=== PATIENT | male | born 1990 | race Caucasian/White ===

== ENCOUNTER 2017-01-08 15:35 | Emergency (ER) | payer SELFPAY ==
[~2017-01-08] VITALS: Ht 188 cm; Wt 121.7 kg
[~2017-01-08 15:35] MED LIST: BUPR-51 PO; IBUP-1546 PO; OMEP-122 PO; PRED50TA PO; SERT25TA PO; [UNRECOGNIZED DRUG - OTHER]
[2017-01-08 15:37] VITALS: Ht 188 cm; Wt 121.7 kg
--- OUTSIDE RECORDS SUMMARY | 2017-01-08 15:40 | XMS REPORT | Continuity of Care Document ---
Author Author [facility] Organization [facility] Address Unknown Phone Unavailable Care Team Providers Care Manager Customer Name Role Phone LISA LOPEZ DO Primary Care Physician [phone] Insurance Providers Guarantor Tiffani Arevalo Address [address] [place] [address] Email [email or web address] Payer Self Pay Subscriber's Name Tiffani Arevalo Relationship 18 Self Advance Directives Directive Response Recorded Date/Time Advanced Directives Type None 12/28/13 11:35pm Chief Complaint and Reason for Visit Chief Complaint Skin Rash/Abscess/Injury Reason for Visit [id number] Problems Active Problems Medical Problem Onset Date Status Dehydration Unknown Acute Diarrhea Unknown Acute Peripheral neuropathy Unknown Acute Trapezius muscle spasm Unknown Acute Past Problems Medical Problem Onset Date Depression with suicidal ideation Unknown Poison radha dermatitis Unknown Medications Current Home Medications Medication Dose Units Route Directions Days Qty Instructions Start Date Bupropion Hcl (Bupropion Xl) 150 Mg Tab.er.24h 12/26/16 Ibuprofen 400 Mg Tablet 1 Tab Oral Every 6 Hr Prn 20 Tablet Ivarest 12/26/16 Omeprazole 20 Mg Tablet.dr 20 Mg Oral Before Breakfast Take 1 tablet , by mouth, one time a day with breakfast. 12/26/16 Prednisone 50 Mg Tablet 50 Mg Oral Give With Breakfast 7 Days 7 Tablet Take 1 tablet, by mouth, once a day with breakfast. Supervising physician Dr. Deejay Cotton Profile Grinder Technician [facility] [address] [phone] 12/26/16 Sertraline Hcl (Zoloft) 25 Mg Tablet Unknown Dose Oral Daily Past Home Medications Medication Directions Ordered Status Baclofen 10 Mg Tablet, 10 Mg Oral Three Times A Day 07/08/15 Discontinued Ibuprofen 800 Mg Tablet, 1 Tab Oral Three Times A Day as needed for Pain Discontinued No Routine Meds , 07/08/15 Discontinued Social History Social History Problem Response Recorded Date/Time Onset Date Status Hx Alcohol Use N CLEAN SINCE 08-19-2015 08/19/2016 3:18am Not Applicable Not Applicable Tobacco Usage none 12/28/2013 11:33pm Not Applicable Not Applicable Query Response Start Date Stop Date Smoking Status Current every day smoker Hospital Discharge Instructions No hospital discharge instructions. Plan of Care Discharge Date 12/26/16 4:18pm Disposition 01 DISCHARGED HOME, SELF-CARE Condition at Discharge Stable Instructions/Education Provided Contact Dermatitis (DC) Poison Radha (ED) Prescriptions See Medication Section Referrals LISA LOPEZ DO Address: [facility] [place] [phone] JIA MONTEIRO MD Address: [address] [place] [address] [place] [phone] Additional Instructions/Education You have had an injection of dexamethasone in the clinic today. Starting tomorrow morning begin the prednisone 50 mg daily as directed. If your developing worsening symptoms with spreading rash you need to follow with primary care clinic. Keep the skin areas clean and dry, do not apply any antibiotic ointments or moistening agents. Functional Status No functional status results. Allergies, Adverse Reactions, Alerts Allergen Type Severity Reaction Status Last Updated Penicillin Allergy Unknown Active 12/26/16 Immunizations Query Response on File Recorded Date/Time Hx Tetanus, Diptheria, Pertussis No 12/28/13 11:35pm Hx Tetanus, Diptheria, Pertussis No 12/28/13 11:35pm Influenza Vaccine Hx NO 12/26/16 3:40pm Vital Signs Acute Vital Signs Vital Response Date/Time Temperature (Fahrenheit) 97.5 deg F (96.8 - 99.1) 12/26/2016 3:34pm Temperature (Calculated Celsius) 36.66853 degrees C (36.0 - 37.3) 12/26/2016 3:34pm Pulse Rate (adult) 96 bpm (60 - 100) 12/26/2016 3:34pm Respiratory Rate 16 breaths/min (10 - 20) 12/26/2016 3:34pm O2 Sat by Pulse Oximetry 97 % (90 - 100) 12/26/2016 3:34pm Blood Pressure 133/90 mm Hg 12/26/2016 3:34pm Height (Inches) 72.50 inches 12/26/2016 3:34pm Weight (Kilograms) 119.700 kg 12/26/2016 3:34pm Body Mass Index (BMI) 35.0 12/26/2016 3:34pm Results No known relevant diagnostic tests, laboratory data and/or discharge summary. Procedures No known history of procedures. Encounters Encounter Location Arrival/Admit Date Discharge/Depart Date Attending Provider Departed Emergency Room [facility] 12/26/16 3:26pm 12/26/16 4: 18pm MADELYN BARNARD APRN Recent Diagnosis
--- OUTSIDE RECORDS SUMMARY | 2017-01-08 15:40 | XMS REPORT | Continuity of Care Document ---
Author Author [facility] Organization [facility] Address Unknown Phone Unavailable Allergies Active Description Code Type Severity Reaction Onset Reported/Identified Relationship to Patient Clinical Status Yes penicillin NKMA N/A Rash 12/15/2013 Medications Problems Procedures Results Encounters ACCT No. Visit Date/Time Discharge Status Pt. Type Provider Facility Loc./Unit Complaint [id number] 10/06/2015 13:58:00 2015 23:59:00 DIS Outpatient Rubio Arzate Via [facility] doc lft leg hurts [id number] 07/21/2015 08:07:00 2014 23:59:00 DIS Outpatient Rubio Arzate Via [facility] 7 DAY RCK [id number] 07/11/2015 15:18:00 2014 23:59:00 DIS Outpatient Rubio Arzate Via [facility] RT SHOULDER AND HAND PAIN [id number] 08/09/2015 12:47:00 ACT Outpatient Rubio Arzate Via [facility] 2 WK RCK RT SHOULDER INJURY
--- NOTE | 2017-01-08 15:53 | ERPDOC ---
Departure Disposition Decision Date: January 08, 2017 Disposition Decision Time: 22:04 (NOIZAIAH,YUMIKO N DATABASE CONSULTANT) Disposition: 01 DISCHARGED HOME, SELF-CARE Impression Impression (NOIZAIAH,YUMIKO N DATABASE CONSULTANT) Impression: Primary Impression: Suicidal ideation Severity: Moderate (NOLD,YUMIKO N DATABASE CONSULTANT) Condition: Stable Seen By: Mid-level only (NOBERUMENESA N DATABASE CONSULTANT) Referrals: LISA LOPEZ DO (PCP) JIA MONTEIRO MD (Family) Problems/Meds/Labs Reviewed?: Yes Medications reviewed and manag: Yes (NOIZAIAH,YUMIKO N DATABASE CONSULTANT) Follow up care ordered?: Yes Mental Status: Alert (NOIZAIAHYUMIKO N DATABASE CONSULTANT) HPI - Psychosocial General Chief Complaint: Suicide Ideation/Attempt Stated Complaint: SUICIDAL Time Seen by MD: 15:40 Source: patient Exam Limitations: no limitations (YUMIKO MCCARTY APRN) Time Seen by MD: 15:40 (CAROLEE GODOY DO) HPI - Psychosocial Initial Comments He has had some trouble with martina over the last few weeks. He has had thoughts of wanting to harm himself as well as others. He does report that he feels like "a monster" just comes out in him and he wants to hurt people. He did go to [facility] today and had an assessment done with Claude GAMBINO. Claude did recommend he be admitted to [facility]. At that time Patric left and Claude did call PD. Patric was contacted by PD and brought to ER for medical clearance. Claude is going to work on acceptance to [facility]. Patric does admit to drinking alcohol today and smoking marijuana last week. He denies any other drug ingestion. He does confirm that he wants to kill himself. Has been admitted to [facility] in the past. Occurred At: home Onset: Gradual Duration: other (Over the last few weeks) Severity: moderate Associated Symptoms: anxiety, impaired concentration, other (homicidal ideation ), suicidal ideation, DENIES: ingestion, injury, insomnia Hx of Similar Symptoms: Yes (NOIZAIAH,YUMIKO N DATABASE CONSULTANT) Allergies: Coded Allergies: Penicillins (Verified Allergy, Unknown, 12/26/16) Past History Past Medical History Psychological: alcohol abuse, bipolar, depression (NOIZAIAH,YUMIKO N DATABASE CONSULTANT) Surgical History Denies Surgeries (LUL,YUMIKO N DATABASE CONSULTANT) Vaccines Hx Tetanus, Diptheria, Pertuss: No (LUL,YUMIKO N DATABASE CONSULTANT) Social History Does patient use chewing tobac: No # of Packs/Tins per Day: 0.5 # of Years: 8 Second Hand Exposure: No Substance Use Type: does not use Alcohol Intake: former alcohol drinker (BHAVANI MCCARTYA N DATABASE CONSULTANT) Review of Systems Constitutional Constitutional: DENIES: chills, dizziness, fatigue, fever, weakness (LUL, YUMIKO N DATABASE CONSULTANT) Cardiovascular Cardiac: DENIES: chest pain, orthopnea Rhythm/Rate: DENIES: irregular beat, palpitations (LUL,YUMIKO N DATABASE CONSULTANT) Pulmonary Respiratory: DENIES: cough, dyspnea, sputum, tachypnea (NOIZAIAH,YUMIKO N DATABASE CONSULTANT) GI Upper Abdomen: DENIES: nausea, pain, vomiting Lower Abdomen: DENIES: constipation, diarrhea, pain (LUL,YUMIKO N DATABASE CONSULTANT) Integumentary Skin: DENIES: rash (LUL,YUMIKO N DATABASE CONSULTANT) Neurological General: DENIES: headache, numbness, tingling, weakness (NOIZAIAH,YUMIKO N DATABASE CONSULTANT) Physical Exam General General Nourishment: well nourished, well developed, appears stated age, no acute distress, adult General Body Habitus: well groomed (BHAVANI MCCARTYA N DATABASE CONSULTANT) Vitals and Pain First Documented Vital Signs Date Time Temp Pulse Resp B/P Pulse Ox O2 Delivery O2 Flow Rate FiO2 01/08/17 15:37 98.7 100 18 155/86 95 Room Air (EB DO) Vitals and Pain Weight: Kilograms: Height (feet): 6 Height (inches): 72.50 Triage Pain Scale: (YUMIKO MCCARTY N DATABASE CONSULTANT) RN VS reviewed by Provider: Yes (YUMIKO MCCARTY APRN) Normal Exams: Eyes: Pupils are PERRLA w/ EOMI, No scleral icterus, irritation, or foreign bodies noted ENMT: No facial trauma, nasal exudates, pharyngeal erythema, or exudates are noted Neck: Full range of motion, without adenopathy, JVD, bruits or thyromegaly Chest/Resp: Clear all morales, with good airflow, and symmetry bilaterally CV: Regular rate and rhythm, without murmur or gallop, Pulses 2+ all extremities, capillary refill, <2 seconds all ext., no pedal edema noted Abdomen: Bowel sounds positive, soft, non-tender, non-distended, no hepatosplenomegaly, masses or bruits noted Lymphatic: No lymphadenopathy, or lymphedema noted Integumentary: No rashes, hives, or bruising noted Neurologic: Patient is alert, and oriented Psychiatric: Patient exhibits, appropriate attention, emotion and affect (NOLD,YUMIKO N DATABASE CONSULTANT) Differential Diagnoses Considering: Anxiety, Bipolar, Homicidal Ideation, Martina, Acute Psychosis, Suicidal Ideation (NOLD,YUMIKO N DATABASE CONSULTANT) Progress Results/Orders Orders Procedure Category Date Status Time Ethanol LAB 01/08/17 Complete Drug Screen LAB 01/08/17 Complete [place] [facility] [place] Ua, Dip Wreflex LAB 01/08/17 Complete [employer] 15:51 Acetaminophen LAB 01/08/17 Complete Salicylate LAB 01/08/17 Complete Cbc W/Auto LAB 01/08/17 Complete Diff-Reflex Manual Bmp - Basic Metabolic LAB 01/08/17 Complete Panel Tsh - Thyroid Stim LAB 01/08/17 Complete Hormone Regular Diet DIET 01/09/17 Transmitted Breakfast Ibuprofen (Motrin) PHA 01/08/17 Complete 19:30 (DECEMBER,CAROLEE M DO) Lab Results Laboratory Tests Test 01/08/17 16:15 01/08/17 16:21 01/08/17 17:31 White Blood Count 11.1T/MM3 Red Blood Count 4.72M/MM3 Hemoglobin 14.2GM/DL Hematocrit 41.5% Mean Corpuscular Volume 87.9UM3 Mean Corpuscular Hemoglobin 30.1UUG Mean Corpuscular Hemoglobin Concent 34.2GM/DL RDW Standard Deviation 42.0FL Platelet Count 209T/MM3 Mean Platelet Volume 9.3UM3 Immature Granulocyte % (Auto) 0.2% Neutrophils (%) (Auto) 66.9% Lymphocytes (%) (Auto) 25.4% Monocytes (%) (Auto) 4.8% Eosinophils (%) (Auto) 2.5% Basophils (%) (Auto) 0.2% Absolute Immature Granulocyte (auto 0.02T/MM3 Absolute Neutrophils (auto) 7.4T/MM3 Absolute Lymphocytes (auto) 2.8T/MM3 Absolute Monocytes (auto) 0.5T/MM3 Absolute Eosinophils (auto) 0.3T/MM3 Absolute Basophils (auto) 0.0T/MM3 Turbidity < 20 Sodium Level 144MEQ/L Potassium Level 3.9MEQ/L Chloride Level 107MEQ/L Carbon Dioxide Level 25MEQ/L Anion Gap 12MEQ/L Blood Urea Nitrogen 14.0MG/DL Creatinine 0.8MG/DL Glomerular Filtration Rate Calc 118 BUN/Creatinine Ratio 18RATIO Glucose Level 128MG/DL Calculated Osmolality 280MOSM/KG Calcium Level 9.5MG/DL Icterus Index < 2 Thyroid Stimulating Hormone (TSH) 1.03MIU/L Chemistry Specimen Hemolysis < 15 Salicylates Level < 1.0MG/DL Acetaminophen Level < 10UG/ML Alcohol, Quantitative <10MG/DL Urine Collection Type Cleancatch-midstream Urine Color Yellow Urine Turbidity Clear Urine pH 6.5 Urine Specific [place] 1.020 Urine Protein Negative Urine Glucose (UA) Negative Urine Ketones Negative Urine Blood Negative Urine Nitrite Negative Urine Bilirubin Negative Urine Urobilinogen 0.2EU/DL Urine Leukocyte Esterase Negative Urinalysis Comment Microscopic not ind. Urine Opiates Screen NegativeNG/ML Urine Oxycodone Screen NegativeNG/ML Urine Methadone Screen NegativeNG/ML Urine Propoxyphene Screen NegativeNG/ML Urine Barbiturates Screen NegativeNG/ML Urine Tricyclic Antidepressants NegativeNG/ML Urine Phencyclidine Screen NegativeNG/ML Urine Amphetamines Screen NegativeNG/ML Urine Methamphetamines Screen NegativeNG/ML Urine Benzodiazepines Screen NegativeNG/ML Urine Cocaine Screen NegativeNG/ML Urine Cannabinoids Screen NegativeNG/ML Lab Scanned Report REFERENCE [id number] () Medications Current ED Medications Ibuprofen (Motrin) 800 mg O ONCE PO Last administered on 01/08/17 19:33; Start 01/08/17 at 19:30; Stop 01/08/17 at 19:31; Status DC (EB ) Medications Current ED Medications Ibuprofen (Motrin) 800 mg O ONCE PO Last administered on 01/08/17 19:33; Start 01/08/17 at 19:30; Stop 01/08/17 at 19:31; Status DC (YUMIKO MCCARTY APRN) Progress Progress 2203- CBC, BMP, UA, UDS, and TSH are normal. Patient is accepted to [facility] per Dr Lanier at this time. Will send by secure transport. (YUMIKO MCCARTY APRN) YUMIKO MCCARTY APRN January 08, 2017 15:52 DECEMBER,CAROLEE Rust DO January 09, 2017 07:37
--- OUTSIDE RECORDS SUMMARY | 2017-01-08 16:16 | XMS REPORT | Continuity of Care Document ---
Author Author [facility] Organization [facility] Address Unknown Phone Unavailable Allergies Active Description Code Type Severity Reaction Onset Reported/Identified Relationship to Patient Clinical Status Yes penicillin NKMA N/A Rash 12/15/2013 Medications Problems Procedures Results Encounters ACCT No. Visit Date/Time Discharge Status Pt. Type Provider Facility Loc./Unit Complaint [id number] 10/06/2015 13:58:00 2015 23:59:00 DIS Outpatient Rubio Arzate Via [facility] doc lft leg hurts [id number] 07/21/2015 08:07:00 2014 23:59:00 DIS Outpatient Rubio Arzate Via [facility] 7 DAY RCK [id number] 07/11/2015 15:18:00 2014 23:59:00 DIS Outpatient Rubio Arzate Via [facility] RT SHOULDER AND HAND PAIN [id number] 08/09/2015 12:47:00 ACT Outpatient Rubio Arzate Via [facility] 2 WK RCK RT SHOULDER INJURY
--- NOTE | 2017-01-08 16:22 | NUR ---
LAB IN ROOM
[2017-01-08 16:28] LABS: BLOOD, URINE NEGATIVE (NEGATIVE); COLOR,URINE YELLOW (YELLOW); LEUKOCYTE ESTERASE ,URINE NEGATIVE (NEGATIVE); NITRITE,URINE NEGATIVE (NEGATIVE); UROBILINOGEN,URINE 0.2 EU/DL (NORMAL)
--- NOTE | 2017-01-08 16:30 | NUR ---
PT IS HANDCUFFED TO ER BED WITH POLICE PRESENCE
[2017-01-08] MEDS ORDERED: SERT100T12 PO (16:38)
[2017-01-08 16:39] LABS: BASOPHILS % (AUTO) 0.2 % (0-2); EOSINOPHILS # (AUTO) 0.3 T/MM3 (0-0.5); EOSINOPHILS % (AUTO) 2.5 % (0-4); HCT - HEMATOCRIT 41.5 % (41-53); HGB - HEMOGLOBIN 14.2 GM/DL (13.5-17.5); IMMATURE GRANULOCYTE # (AUTO) 0.02 T/MM3 (0.00-0.03); IMMATURE GRANULOCYTE % (AUTO) 0.2 % (0.0-0.5); LYMPHOCYTES # (AUTO) 2.8 T/MM3 (1-4.8); LYMPHOCYTES % (AUTO) 25.4 % (23-45); MEAN CORPUSCULAR HGB 30.1 UUG (26-34); MEAN CORPUSCULAR HGB CONC(MCHC 34.2 GM/DL (31-37); MEAN CORPUSCULAR VOLUME 87.9 UM3 (80-100); MEAN PLATELET VOLUME 9.3 UM3 (9.4-12.4); MONOCYTES # (AUTO) 0.5 T/MM3 (0-0.8); MONOCYTES % (AUTO) 4.8 % (0-9.0); NEUTROPHILS #(AUTO)-ABSOLUTE 7.4 T/MM3 (1.8-7.7); NEUTROPHILS % (AUTO) 66.9 % (33-66); RED BLOOD COUNT 4.72 M/MM3 (4.50-5.90); WBC - WHITE BLOOD COUNT 11.1 T/MM3 (4.5-11.0)
[2017-01-08 16:42] LABS: ACETAMINOPHEN < 10 UG/ML (10-30); ANION GAP 12 MEQ/L (5-15); BUN/CREATININE RATIO 18 RATIO (6-26); CALCIUM 9.5 MG/DL (8.4-10.2); CHLORIDE 107 MEQ/L (98-107); CO2 - CARBON DIOXIDE 25 MEQ/L (22-30); CREATININE 0.8 MG/DL (0.8-1.5); ETHANOL <10 MG/DL (<10); GLOMERULAR FILTRATION RATE 118; GLUCOSE 128 MG/DL (75-110); POTASSIUM 3.9 MEQ/L (3.6-5); SALICYLATE < 1.0 MG/DL (2-20); SODIUM 144 MEQ/L (134-144)
[2017-01-08 16:43] LABS: AMPHETAMINE SCREEN,URINE NEGATIVE; BARBITURATE SCREEN,URINE NEGATIVE; BENZODIAZEPINES SCREEN,URINE NEGATIVE; CANNABINOID SCREEN,URINE NEGATIVE; COCAINE SCREEN,URINE NEGATIVE; METHADONE SCREEN, URINE NEGATIVE; METHAMPHETAMINE SCREEN, URINE NEGATIVE; OPIATE SCREEN,URINE NEGATIVE; PHENCYCLIDINE SCREEN,URINE NEGATIVE; TRICYCLIC ANTIDEPRESSANT,URINE NEGATIVE
--- NOTE | 2017-01-08 16:55 | NUR ---
ICE WATER PROVIDED TO PT PER DR SIERRA
--- NOTE | 2017-01-08 17:00 | NUR ---
ADVISED PT THAT THE PAPERWORK HAS BEEN SENT TO [facility] AND WE ARE AWAITING APPROVAL FOR TRANSFER. PT VOICES RELIEF TO KNOW THAT HE WILL NOT HAVE TO FACE [employer]AI[employer] VIEW SCREENER.
--- NOTE | 2017-01-08 17:10 | NUR ---
STATUS LANDFILL ATTENDANT IN ROOM WITH PT
[2017-01-08 17:23] LABS: THYROID STIM HORMONE-TSH 1.03 MIU/L (0.47-4.68)
--- NOTE | 2017-01-08 17:49 | NUR ---
STATUS PT TO BATHROOM WITH POLICE ESCORT
--- NOTE | 2017-01-08 18:30 | NUR ---
meal nursing staff used meal coupon at cafeteria. pt given hamburgers and israeli fries. pt sitting up eating
--- NOTE | 2017-01-08 18:45 | NUR ---
STATUS PT IS DONE EATING. WARM BLANKET IS GIVEN. LIGHTS DIMMED.
[2017-01-08] MEDS ORDERED: IBUPROFEN 800 MG TABLET PO ONE (19:30)
--- NOTE | 2017-01-08 20:35 | NUR ---
STATUS PT IS WATCHING TELEVISION.
--- NOTE | 2017-01-08 20:41 | NUR ---
UP TO THE BATHROOM
--- NOTE | 2017-01-08 22:01 | NUR ---
DOC TO DOC [facility] CALLED ALEXANDRA BRAR FOR REPORT/ACCEPTANCE
--- NOTE | 2017-01-08 22:09 | NUR ---
STATUS ATTEMPTED TO CALL REPORT. TIA, [facility] OPERATOR WILL CALL ME BACK.
--- NOTE | 2017-01-08 22:11 | NUR ---
[facility] CONTACTED [facility] FOR TRANSFER FROM [facility] TO [facility].
--- NOTE | 2017-01-08 22:15 | NUR ---
REPORT NILS MURPHY RN FROM CALLED BACK. REPORT IS GIVEN. PLAN TO CALL WHEN PT LEAVES OUT FACILITY
--- NOTE | 2017-01-08 22:45 | NUR ---
REPORT [facility]PS STAFF IS HERE. REPORT IS GIVEN. PAPERWORK GIVEN TO STAFF
[2017-01-08 22:55] VITALS: BP 132/58; PULSE 71; RESP 20; TEMP 97.8; O2SAT 96
--- NOTE | 2017-01-08 23:00 | NUR ---
[facility] called tia [facility] brushing machine operator to inform her pt has left with [facility], and heading to [facility]
== END 2017-01-08 22:55 ==
LOC: ED 15:35
DX: R45.851 Suicidal ideations (principal)
CPT/HCPCS: 36415; 80048; 80306; 80307; 81003; 84443; 85025